=== PATIENT | female | born 1980 | race Hispanic/Latino ===

== ENCOUNTER 2025-02-18 22:45 | Emergency (ER) | payer OTHER ==
[~2025-02-18] VITALS: Ht 154.9 cm; Wt 66.2 kg
[~2025-02-18 22:45] MED LIST: BISACODYL5 MG PO; DULCOLAX10 MG PR; FERROUS SU220 MG/51 PO; LEVOTHYROXINE50 MCG PO; ONDANSETRON ODT4 MG PO; VITAMIN C500 MG PO
[2025-02-18 22:55] VITALS: PULSE 85; RESP 20; TEMP 98.5
[2025-02-18] MEDS ORDERED: ANUSOL-HC25 MG RC (23:12)
[2025-02-18] MEDS ORDERED: COLACE100 M1 PO (23:12)
[2025-02-18] MEDS: ACETAMINOPHEN 325 MG TAB PO ONE (23:23)
[2025-02-18] MEDS: TRAMADOL HCL 50 MG TAB PO ONE (23:24)
[2025-02-18] MEDS: ONDANSETRON HCL 4 MG ORAL DISINTEGRATING TAB PO ONE (23:24)
[2025-02-18 23:28] VITALS: BP 153/79; RESP 18; O2SAT 95
== END 2025-02-18 23:29 | disposition home or self-care (01) ==
LOC: FSED 22:51
DX: K62.89 Other specified diseases of anus and rectum (principal); K64.5 Perianal venous thrombosis; D64.9 Anemia, unspecified; E03.9 Hypothyroidism, unspecified; Z98.84 Bariatric surgery status
CPT/HCPCS: 99283; Q0162

== ENCOUNTER 2025-03-30 10:01 | Emergency (ER) | payer OTHER ==
[~2025-03-30] VITALS: Ht 154.9 cm; Wt 66.2 kg
[~2025-03-30 10:01] MED LIST changes: +ANUSOL-HC25 MG RC; +COLACE100 M1 PO
[2025-03-30 10:30] VITALS: PULSE 103; RESP 16
[2025-03-30 10:50] VITALS: TEMP 98; O2SAT 97
[2025-03-30] MEDS ORDERED: ANUSOL-HC30 GM RC (11:04)
[2025-03-30] MEDS ORDERED: ANUSOL-HC25 MG RC (13:02)
[2025-04-05] MEDS ORDERED: ASPIRIN81 MG PO (13:52)
[2025-04-05] MEDS ORDERED: AMLODIPINE BESYL5 MG PO (13:52)
[2025-04-05] MEDS ORDERED: HYDROCHLOROTHIA25 MG PO (13:53)
[2025-04-05] MEDS ORDERED: METFORMIN HCL500 MG PO (13:53)
[2025-04-05] MEDS ORDERED: FENOFIBRATE145 MG PO (13:53)
[2025-04-05] MEDS ORDERED: TYLENOL EXTRA500 MG PO (13:56)
== END 2025-03-30 11:15 | disposition home or self-care (01) ==
LOC: ER 10:23
DX: K62.89 Other specified diseases of anus and rectum (principal); K64.9 Unspecified hemorrhoids; I10 Essential (primary) hypertension; E11.9 Type 2 diabetes mellitus without complications; E78.5 Hyperlipidemia, unspecified; E03.9 Hypothyroidism, unspecified; D64.9 Anemia, unspecified; Z98.84 Bariatric surgery status
CPT/HCPCS: 99282

== ENCOUNTER 2025-04-26 09:31 | Observation (INO) | payer OTHER ==
[2025-04-25 12:44] LABS: BASOPHILS # (AUTO) 0.1 (0.0-0.1); BASOPHILS % 0.5 % (0.0-1.0); EOSINOPHILS # (AUTO) 0.2 (0.0-0.4); EOSINOPHILS % 1.6 % (0.0-6.0); HEMATOCRIT 39.1 % (34.2-44.1); HEMOGLOBIN 13.5 g/dL (12.0-16.0); LYMPHOCYTES # (AUTO) 2.4 (1.0-3.2); LYMPHOCYTES % 21.9 % (18.0-39.1); MEAN CORPUSCULAR HEMOGLOBIN 32.1 pg (28-32); MEAN CORPUSCULAR HGB CONC 34.5 g/dL (31-35); MEAN CORPUSCULAR VOLUME 92.9 fL (81-99); MONOCYTES # (AUTO) 0.6 (0.2-0.8); NEUTROPHILS # (AUTO) 7.8 (2.1-6.9); NEUTROPHILS % 70.4 % (38.7-80.0); PLATELET COUNT 270 x10e3/uL (140-360); RED BLOOD COUNT 4.21 x10e6/uL (3.6-5.1); RED CELL DISTRIBUTION WIDTH 13.2 % (11.7-14.4); WHITE BLOOD COUNT 11.04 x10e3/uL (4.8-10.8)
[2025-04-25 13:11] LABS: ALBUMIN 4.3 g/dL (3.5-5.0); ALBUMIN/GLOBULIN RATIO 1.1 (0.8-2.0); ANION GAP 17.2 mmol/L (8-16); BILIRUBIN,TOTAL 0.3 mg/dL (0.2-1.2); CALCIUM 9.4 mg/dL (8.4-10.2); CREATININE, SERUM 0.85 mg/dL (0.57-1.11); TOTAL PROTEIN 8.1 g/dL (6.5-8.1)
[2025-04-25 13:13] LABS: POTASSIUM 3.2 mmol/L (3.5-5.1)
[~2025-04-26] VITALS: Ht 154.9 cm; Wt 65.8 kg
[~2025-04-26 09:31] MED LIST changes: +AMLODIPINE BESYL5 MG PO; +ANUSOL-HC30 GM RC; +ASPIRIN81 MG PO; +FENOFIBRATE145 MG PO; +HYDROCHLOROTHIA25 MG PO; +METFORMIN HCL500 MG PO; +TYLENOL EXTRA500 MG PO
[2025-04-26] MEDS: LACTATED RINGER'S 1,000 ML BAG IV ONE (10:25)
[2025-04-26] MEDS ORDERED: LIDOCAINE HCL 2% LOCAL INJ 5 ML SDV VIAL INJ ONE (11:39)
[2025-04-26] MEDS ORDERED: FENTANYL CITRATE/PF 100MCG/2 ML INJ ONE (11:39)
[2025-04-26] MEDS ORDERED: PROPOFOL IV EMULSION 10 MG/ML 20 ML VIAL ONE (11:39)
[2025-04-26] MEDS ORDERED: ONDANSETRON HCL INJ 2MG/ML 2ML 2 MG/ML VIAL ONE (11:46)
[2025-04-26] MEDS ORDERED: ACETAMINOPHEN 1000 MG/100 ML 100 ML IV ONE (11:46)
[2025-04-26] MEDS ORDERED: SEVOFLURANE INHAL SOLN 250 ML PEN BTL ONE (11:46)
[2025-04-26] MEDS: FENTANYL CITRATE/PF 100MCG/2 ML INJ ONE (13:32)
[2025-04-26] MEDS: SODIUM CHLORIDE 0.9% 1000ML 1,000 ML IV SCH (15:30)
[2025-04-26] MEDS: HYDROMORPHONE 1MG/1ML INJ IV PRN (15:32)
[2025-04-26 15:55] VITALS: BP 112/72; PULSE 64; RESP 16; TEMP 97.8; O2SAT 97
[2025-04-26 16:00] VITALS: BP 110/72; PULSE 58; RESP 17; TEMP 98.4; O2SAT 97
[2025-04-26] MEDS: DOCUSATE SODIUM 100 MG CAP PO SCH (17:00)
[2025-04-26] MEDS: HYDROCODONE/APAP 7.5MG-325MG 1 EA TAB PO PRN (17:38)
[2025-04-26 20:00] VITALS: BP 120/71; PULSE 54; RESP 17; TEMP 98.4; O2SAT 98
[2025-04-26] MEDS: METFORMIN HCL 500 MG TAB PO SCH (20:29)
[2025-04-26] MEDS: ONDANSETRON HCL INJ 2MG/ML 2ML 2 MG/ML VIAL IV PRN (20:31)
[2025-04-26 21:00] VITALS: BP 120/71; PULSE 54; RESP 17; TEMP 98.4; O2SAT 98
[2025-04-26] MEDS: KETOROLAC TROMETHAMINE 30 MG/ML VIAL IV PRN (21:45)
[2025-04-27] VITALS: BP 126/87; PULSE 57; RESP 17; TEMP 98.4; O2SAT 98
[2025-04-27 04:00] VITALS: BP 111/65; PULSE 68; RESP 17; TEMP 98.5; O2SAT 100
[2025-04-27 06:47] LABS: BASOPHILS % 0.4 % (0.0-1.0); EOSINOPHILS # (AUTO) 0.2 (0.0-0.4); EOSINOPHILS % 2.5 % (0.0-6.0); HEMATOCRIT 37.6 % (34.2-44.1); HEMOGLOBIN 13.1 g/dL (12.0-16.0); LYMPHOCYTES # (AUTO) 2.2 (1.0-3.2); LYMPHOCYTES % 27.1 % (18.0-39.1); MEAN CORPUSCULAR HGB CONC 34.8 g/dL (31-35); MEAN CORPUSCULAR VOLUME 91.9 fL (81-99); MONOCYTES # (AUTO) 0.6 (0.2-0.8); MONOCYTES % 6.7 % (4.4-11.3); NEUTROPHILS # (AUTO) 5.2 (2.1-6.9); NEUTROPHILS % 62.9 % (38.7-80.0); PLATELET COUNT 248 x10e3/uL (140-360); RED BLOOD COUNT 4.09 x10e6/uL (3.6-5.1); RED CELL DISTRIBUTION WIDTH 12.8 % (11.7-14.4); WHITE BLOOD COUNT 8.26 x10e3/uL (4.8-10.8)
[2025-04-27 07:25] LABS: ANION GAP 14.1 mmol/L (8-16); CREATININE, SERUM 0.78 mg/dL (0.57-1.11); POTASSIUM 3.1 mmol/L (3.5-5.1)
[2025-04-27 08:57] VITALS: BP 116/56; PULSE 47; RESP 17; TEMP 98.4; O2SAT 97
[2025-04-27 09:22] VITALS: BP 116/56; PULSE 47; RESP 17; TEMP 98.4; O2SAT 97
[2025-04-27] MEDS: AMLODIPINE BESYLATE 5 MG TAB PO SCH (09:25)
[2025-04-27] MEDS: HYDROCHLOROTHIAZIDE 25 MG TAB PO SCH (09:25)
[2025-04-27] MEDS: LEVOTHYROXINE SODIUM 50 MCG TAB PO SCH (09:25)
[2025-04-27 12:45] VITALS: BP 128/75; PULSE 53; RESP 17; TEMP 98.4; O2SAT 97
== END 2025-04-27 16:30 | disposition home or self-care (01) ==
LOC: OR 09:31 → PACU V 12:51 → MED/SURG3 14:40
PROVIDERS: ADMIT Surgery; ATTEND Surgery
DX: K64.8 Other hemorrhoids (principal); K60.1 Chronic anal fissure; I10 Essential (primary) hypertension; E11.9 Type 2 diabetes mellitus without complications; Z01.812 Encounter for preprocedural laboratory examination; Z79.84 Long term (current) use of oral hypoglycemic drugs
CPT/HCPCS: 36415; 80048; 80053; 81025; 82948; 85025; 88304; G0378; J0696; J1171; J1885; J2003; J2405; J7030

== ENCOUNTER → 2025-06-09 | Day surgery (SDC) | payer OTHER ==
[~2025-06-09] MED LIST changes: +ACETAMINOPHEN500 M1 PO; +FENTANYL CITRATE/PF 100MCG/2 ML INJ ONE; +FIBER PO; +LIDOCAINE HCL 2% LOCAL INJ 5 ML SDV VIAL INJ ONE; +METOCLOPRAMIDE HCL 10 MG/2ML VIAL ONE; +MIDAZOLAM HCL 2 MG/2 ML VIAL ONE; +PROPOFOL IV EMULSION 10 MG/ML 20 ML VIAL ONE; +SLEEP AID25 M1 PO
[2025-06-09] MEDS: LACTATED RINGER'S 1,000 ML ONE (14:00)
[2025-06-09 16:34] VITALS: BP 121/76; PULSE 71; RESP 18; O2SAT 98
== END | disposition home or self-care (01) ==
LOC: OR 13:03
PROVIDERS: ATTEND Internal Medicine Gastroenterology
DX: K29.70 Gastritis, unspecified, without bleeding (principal); K31.89 Other diseases of stomach and duodenum; K22.10 Ulcer of esophagus without bleeding; K21.9 Gastro-esophageal reflux disease without esophagitis; K44.9 Diaphragmatic hernia without obstruction or gangrene; Z98.84 Bariatric surgery status; K59.09 Other constipation; D64.9 Anemia, unspecified; E11.9 Type 2 diabetes mellitus without complications; I10 Essential (primary) hypertension; Z71.89 Other specified counseling; E78.5 Hyperlipidemia, unspecified; E03.9 Hypothyroidism, unspecified; Z01.810 Encounter for preprocedural cardiovascular examination; Z79.82 Long term (current) use of aspirin; Z79.84 Long term (current) use of oral hypoglycemic drugs; Z79.899 Other long term (current) drug therapy; Z68.28 Body mass index [BMI] 28.0-28.9, adult; Z71.3 Dietary counseling and surveillance
CPT/HCPCS: 36415; 43239; 81025; 82948; 93005; J2003; J2250; J2470; J2704; J2765; J3010; J7121